=== PATIENT | male | born 1960 | race African-American/Black ===

== ENCOUNTER 2019-08-09 02:29 | Emergency (ER) | payer SELFPAY ==
[~2019-08-09] VITALS: Ht 182.9 cm; Wt 107.0 kg
[2019-08-09 02:59] VITALS: BP 151/96
== END 2019-08-09 04:27 | disposition home or self-care (01) ==
LOC: ER 02:29
DX: R05 Cough (principal); Z86.11 Personal history of tuberculosis
CPT/HCPCS: 99281